=== PATIENT | female | born 1980 | race Caucasian/White ===

== ENCOUNTER 2016-10-31 12:06 | Emergency (ER) | payer OTHER ==
[~2016-10-31] VITALS: Ht 170.2 cm; Wt 65.7 kg
[~2016-10-31 12:06] MED LIST: AMITRIPTYLINE H50 M1 PO; ATARAX,VISTARIL50 MG PO; CIPRO500 MG PO; EFFEXOR37.5 MG PO; IMITREX100 MG PO; KLONOPIN2 MG PO; METHADONE; METHADONE1 MG/1 ML PO; NOHOMEMEDS; OCUFLOX 0.100 DROP/5 RIGHT EYE; PERCOCET 5/31 TABLET PO; SILVADENE20 GM TP; TRAMADOL HCL50 MG PO; XANAX1 MG PO; XANAX2 MG PO
[2016-10-31 12:51] LABS: HEMATOCRIT 40.9 % (36.0-46.0); MCH 30.1 PG (29.0-34.0); MCHC 33.5 G/DL (30.0-36.0); MCV 89.9 FL (83-99); MEAN PLAT.VOLUME 10.4 uM^3 (9.5-12.4); PLATELET COUNT 272 K/uL (156-360); RBC DIS.WIDTH-SD 43.3 % (39-53); RED BLOOD COUNT 4.55 M/uL (3.80-5.20); WHITE BLOOD COUNT 13.6 K/uL (4.1-10.2)
[2016-10-31 12:52] LABS: ADD MIUA? YES; BILIRUBIN SMALL; BLOOD MODERATE; COLOR AMBER ((YELLOW)); GLUCOSE (STRIP) NEGATIVE; KETONES 5; LEUKOCYTES TRACE; NITRITE NEGATIVE; PROTEIN (STRIP) 100
[2016-10-31 12:56] LABS: CHLORIDE 103 mEq/L (99-109); POTASSIUM 3.9 mEq/L (3.7-5.4); SODIUM 136 mEq/L (136-147)
[2016-10-31 12:58] LABS: GLUCOSE 128 mg/dL (70-99)
[2016-10-31 12:59] LABS: ANION GAP 13 MEQ/L (2-14)
[2016-10-31 13:00] LABS: TOTAL BILIRUBIN 0.7 mg/dL (0.0-1.0)
[2016-10-31 13:01] LABS: ALKALINE PHOSPHATASE 65 IU/L (3-129)
[2016-10-31 13:02] LABS: GFR ESTIMATE (CALCULATED) > 59 mL/min/
[2016-10-31 13:03] LABS: UREA NITROGEN (BUN) 9 mg/dL (9-23)
[2016-10-31 13:07] LABS: EPITHELIAL CELLS 2+ /HPF; MUCUS 3+ /LPF
[2016-10-31 13:09] LABS: BACTERIA NONE SEEN /HPF; CASTS NONE SEEN /LPF; CRYSTALS NONE SEEN; RED BLOOD CELLS 0-5 /HPF (0-5); UCUL ADDED? NO; WHITE BLOOD CELLS 0-5 /HPF (0-5)
[2016-10-31 13:10] LABS: QUANTITATIVE HCG < 4.0 MIU/ML
[2016-10-31] MEDS ORDERED: ULTRAM50 MG PO (17:31)
[2016-10-31] MEDS ORDERED: MOTRIN800 MG PO (17:31)
[2016-10-31 17:53] VITALS: BP 100/61
[2016-11-02 13:46] LABS: CHLAMYDIA TRACHOMATIS NEGATIVE; NEISSERIA GONORRHOEAE NEGATIVE
== END 2016-10-31 17:56 | disposition home or self-care (01) ==
LOC: RME 12:06 → EME 12:06 → RME 17:56
PROVIDERS: Nurse Practitioner Family
DX: R10.31 Right lower quadrant pain (principal); N83.201 Unspecified ovarian cyst, right side; M54.9 Dorsalgia, unspecified; R31.9 Hematuria, unspecified; Z90.721 Acquired absence of ovaries, unilateral; F17.200 Nicotine dependence, unspecified, uncomplicated
CPT/HCPCS: 74177; 76856; 80053; 81003; 84702; 85027; 87210; 87491; 87591; 99281; 99285; J1885; J7040